=== PATIENT | male | born 1985 | race African-American/Black ===

== ENCOUNTER 2016-11-17 12:32 | Emergency (ER) | payer OTHER ==
[~2016-11-17] VITALS: Ht 175.3 cm; Wt 93.0 kg
[2016-11-17] MEDS ORDERED: NAPROSYN500 MG PO ×2 (13:41→13:44)
[2016-11-17 14:33] VITALS: BP 150/79
== END 2016-11-17 14:33 | disposition home or self-care (01) ==
LOC: ER 12:32
DX: S61.112A Laceration without foreign body of left thumb with damage to nail, initial encounter (principal); J45.909 Unspecified asthma, uncomplicated; F17.210 Nicotine dependence, cigarettes, uncomplicated; F10.99 Alcohol use, unspecified with unspecified alcohol-induced disorder; W26.0XXA Contact with knife, initial encounter; Y93.89 Activity, other specified; Y92.89 Other specified places as the place of occurrence of the external cause; Y99.0 Civilian activity done for income or pay

== ENCOUNTER 2016-11-27 14:12 | Emergency (ER) | payer OTHER ==
[~2016-11-27] VITALS: Ht 175.3 cm; Wt 87.1 kg
[2016-11-27 14:12] VITALS: BP 123/62
[~2016-11-27 14:12] MED LIST: NAPROSYN500 MG PO
== END 2016-11-27 14:54 | disposition home or self-care (01) ==
LOC: ER 14:12
DX: Z48.02 Encounter for removal of sutures (principal); J45.909 Unspecified asthma, uncomplicated; J30.2 Other seasonal allergic rhinitis; F17.210 Nicotine dependence, cigarettes, uncomplicated